=== PATIENT | female | born 1985 | race American Indian/Alaskan Native ===

== ENCOUNTER 2018-09-04 23:30 | Emergency (ER) | payer MEDICAID ==
[2018-09-04 23:36] VITALS: BP 135/77
[2018-09-05 00:21] LABS: Bacteria,Urine 1+ /HPF (Negative); Bilirubin,Urine NEG (Negative); Blood,Urine NEG (Negative); Color,Urine Yellow (Yellow); Mucus,Urine FEW /HPF; Protein,Urine <15 mg/dL mg/dL (Negative)
[2018-09-05 00:23] LABS: HCG Qualitative,Urine Negative (Negative)
--- NOTE | 2018-09-05 02:08 | Emergency Department Report ---
ED General Adult HPI - General Chief complaint: Abdominal Pain Stated complaint: ABD PAIN THROAT PAIN Time Seen by Provider: 09/05/18 01:22 Source: patient Mode of arrival: Ambulatory Limitations: No Limitations - History of Present Illness Initial comments: Patient is a 33-year-old female presents because she thinks she is today she took one test THAT WAS POSITIVE TO ANOTHER TEST AT HOME THAT WAS NEGATIVE wants confirmation tonight secondary complaint is oral thrush and abdominal pain with cycle last menstrual cycle was 2 weeks ago there is no abdominal pain no nausea vomiting no fever chills at this time patient denies vaginal discharge there is no back pain , pt is tolerating po intake without difficulty. Onset/Timin -: month(s) Radiation: non-radiation Severity scale (0 -10): 3 Quality: other (aching ) Consistency: intermittent Improves with: none Worsens with: none Associated Symptoms: denies: confusion, chest pain, cough, diaphoresis, fever/chills, loss of appetite, malaise, nausea/vomiting, seizure, shortness of breath, syncope, weakness Treatments Prior to Arrival: none - Related Data Previous Rx's Medication Instructions Recorded Last Taken Type Acetaminophen [Tylenol] 650 mg PO QID PRN #30 capsule 09/05/18 Unknown Rx Nystatin [Nystatin SUSP] 10 ml PO TID 10 Days #1 bottle 09/05/18 Unknown Rx Allergies Allergy/AdvReac Type Severity Reaction Status Date / Time codeine Allergy Itching Verified 09/05/18 00:06 Penicillins Allergy Hives Verified 09/05/18 00:06 ibuprofen AdvReac Unknown Verified 09/05/18 00:07 ED Review of Systems ROS: Stated complaint: ABD PAIN THROAT PAIN Other details as noted in HPI Constitutional: denies: chills, fever Eyes: denies: eye pain, eye discharge, vision change ENT: throat pain, congestion. denies: ear pain, dental pain, hearing loss, epistaxis Respiratory: denies: cough, shortness of breath, wheezing Cardiovascular: denies: chest pain, palpitations Endocrine: no symptoms reported Gastrointestinal: other (dysmenorrhea ). denies: abdominal pain, nausea, vomiting, diarrhea, constipation, hematemesis, melena, hematochezia Genitourinary: denies: urgency, dysuria, discharge Musculoskeletal: denies: back pain, joint swelling, arthralgia Skin: denies: rash, lesions Neurological: denies: headache, weakness, numbness, paresthesias, confusion Psychiatric: denies: anxiety, depression Hematological/Lymphatic: denies: easy bleeding, easy bruising ED Past Medical Hx - Past Medical History Previous Medical History?: Yes Additional medical history: Anemia, Heart Murmur - Surgical History Past Surgical History?: Yes Additional Surgical History: X 4, Tubal Ligation, IUD removal - Social History Smoking Status: Never Smoker Substance Use Type: Marijuana - Medications Home Medications: Home Medications Medication Instructions Recorded Confirmed Last Taken Type Acetaminophen [Tylenol] 650 mg PO QID PRN #30 capsule 09/05/18 Unknown Rx Nystatin [Nystatin SUSP] 10 ml PO TID 10 Days #1 bottle 09/05/18 Unknown Rx ED Physical Exam - General Limitations: No Limitations General appearance: alert, in no apparent distress - Head Head exam: Present: atraumatic, normocephalic - Eye Eye exam: Present: normal appearance - ENT ENT exam: Present: normal exam, mucous membranes moist, TM's normal bilaterally, normal external ear exam - Expanded ENT Exam Expanded Mouth exam: Present: other (eric to tongue /thrush mild ). Absent: drooling, trismus Throat exam: Positive: normal inspection, other (uvula midline no stridor no exudate ). Negative: tonsillar erythema, tonsillomegaly, tonsillar exudate, R peritonsillar mass, L peritonsillar mass - Neck Neck exam: Present: normal inspection, full ROM. Absent: tenderness, meningismus, lymphadenopathy, thyromegaly - Respiratory Respiratory exam: Present: normal lung sounds bilaterally. Absent: respiratory distress, wheezes, stridor, chest wall tenderness - Cardiovascular Cardiovascular Exam: Present: regular rate, normal rhythm. Absent: systolic murmur, diastolic murmur, rubs, gallop - GI/Abdominal GI/Abdominal exam: Present: soft, normal bowel sounds. Absent: distended, tenderness, bruit, hernia - Rectal Rectal exam: Present: deferred - Extremities Exam Extremities exam: Present: normal inspection, full ROM, normal capillary refill. Absent: tenderness - Back Exam Back exam: Present: normal inspection, full ROM. Absent: tenderness, CVA tenderness (R), CVA tenderness (L) - Neurological Exam Neurological exam: Present: alert, oriented X3 - Psychiatric Psychiatric exam: Present: normal affect, normal mood - Skin Skin exam: Present: warm, dry, intact, normal color. Absent: rash ED Course Vital Signs 09/04/18 09/04/18 23:33 23:47 Temperature 98.3 F 98 F Pulse Rate 101 H 99 H Respiratory 18 18 Rate Blood Pressure 135/77 135/77 O2 Sat by Pulse 100 99 Oximetry ED Medical Decision Making - Lab Data Labs 09/05/18 09/05/18 00:07 00:07 Urine Color Yellow Urine Turbidity Clear Urine pH 6.0 Ur Specific [place] 1.021 Urine Protein <15 mg/dl Urine Glucose (UA) Neg Urine Ketones Neg Urine Blood Neg Urine Nitrite Neg Urine Bilirubin Neg Urine Urobilinogen 2.0 Ur Leukocyte Esterase Sm Urine WBC (Auto) 2.0 Urine RBC (Auto) 2.0 U Epithel Cells (Auto) 9.0 Urine Bacteria (Auto) 1+ Urine Mucus Few Urine HCG, Qual Negative Group A Strep Rapid Negative - Medical Decision Making Although she is noted we'll treat for thrush hCG is negative patient is not we'll prescribe ibuprofen when necessary menstral pain pt will follow up with Radha Marie [facility] in 2-3 days pt verbalized agreement and understanding of same. Critical care attestation.: If time is entered above; I have spent that time in minutes in the direct care of this critically ill patient, excluding procedure time. ED Disposition Clinical Impression: Thrush, oral, Dysmenorrhea Disposition: - TO HOME OR SELFCARE Is pt being admited?: No Does the pt Need Aspirin: No Condition: Stable Instructions: Oral Candidiasis (ED), Dysmenorrhea (ED) Prescriptions: Acetaminophen [Tylenol] 650 mg PO QID PRN #30 capsule PRN Reason: pain Nystatin [Nystatin SUSP] 10 ml PO TID 10 Days #1 bottle Referrals: LION MARIE MD [Staff Physician] - 3-5 Days Forms: Work/School Release Form(ED) Time of Disposition: 02:17
== END 2018-09-05 02:25 | disposition home or self-care (01) ==
LOC: ED 23:30
DX: N94.6 Dysmenorrhea, unspecified (principal); B37.0 Candidal stomatitis
CPT/HCPCS: 81001; 81025; 87116; 87430